=== PATIENT | male | born 1970 | race Two or more races ===

== ENCOUNTER 2016-10-07 18:50 | Emergency (ER) | payer SELFPAY ==
[~2016-10-07] VITALS: Ht 172.7 cm; Wt 79.4 kg
[2016-10-07 18:58] VITALS: BP 135/80
[2016-10-07] MEDS ORDERED: LIDOCAINE HCL/PF 1% 30 ML SDV ONE (19:10)
--- NOTE | 2016-10-07 19:20 | NUR ---
started a saline lock on the right forearm g20, blood drawn and sent to lab.
[2016-10-07 19:25] LABS: BASOPHILS % (AUTO) 0.2 % (0.0-2.0); EOSINOPHILS # (AUTO) 0.2 /CMM (0.0-0.7); HEMATOCRIT 46 % (39-51); HEMOGLOBIN 15.1 g/dL (13.5-17.5); LYMPHOCYTES # (AUTO) 2.4 /CMM (0.8-4.8); LYMPHOCYTES % (AUTO) 24.4 % (20.0-44.0); MEAN CORPUSCULAR HEMOGLOBIN 27 PG (26.0-33.0); MEAN CORPUSCULAR HGB CONC 33 g/dl (31.0-36.0); MEAN CORPUSCULAR VOLUME 82 fL (80-96); MONOCYTES # (AUTO) 0.7 /CMM (0.1-1.30); MONOCYTES % (AUTO) 6.8 % (2.0-12.0); NEUTROPHILS # (AUTO) 6.6 /CMM (1.8-8.9); NEUTROPHILS % (AUTO) 66.6 % (43.0-81.0); PLATELET COUNT (AUTO) 236 /CMM (150-450); RDW COEFFICIENT OF VARIATION 12.3 (11.5-15.0); RED BLOOD CELL COUNT(AUTO) 5.56 MIL/uL (4.5-6.0); WHITE BLOOD COUNT (AUTO) 9.9 K/uL (4.3-11.0)
[2016-10-07] MEDS ORDERED: INSULIN REGULAR, HUMAN 100 UNIT/ML 10 ML VIAL ONE (19:25)
[2016-10-07] MEDS ORDERED: IV SET PRIMARY 1 EA INFUS.SET MC ONE (19:25)
[2016-10-07] MEDS ORDERED: IV NS 0.9% 1,000 ML ONE (19:25)
[2016-10-07] MEDS ORDERED: INSULIN REGULAR, HUMAN 100 UNIT/ML 10 ML VIAL SQ ONE (19:30)
[2016-10-07] MEDS ORDERED: LIDOCAINE HCL/PF 1% 30 ML VIAL TP ONE (19:30)
[2016-10-07] MEDS ORDERED: IV NS 0.9% 1,000 ML BAG IV ONE (19:30)
[2016-10-07 19:37] LABS: CALCIUM, SERUM 9.4 mg/dL (8.5-10.1); CREATININE 1.1 mg/dL (0.6-1.3); POTASSIUM 4.2 mmol/L (3.5-5.1)
--- NOTE | 2016-10-07 19:37 | NUR ---
JEREMY Hamm at bedside for I and D.
[2016-10-07 19:43] LABS: APPEARANCE,URINE Clear (CLEAR); BILIRUBIN,URINE Negative (NEGATIVE); BLOOD, URINE Trace-lysed Ery/uL (NEGATIVE); COLOR,URINE Yellow (YELLOW); KETONES,URINE Negative (NEGATIVE); LEUKOCYTE ESTERASE ,URINE Negative (NEGATIVE); NITRITE, URINE Negative (NEGATIVE); PH,URINE 6.5 (5.0-8.0); PROTEIN,URINE Negative (NEGATIVE); UGLUCOSE 500 MG/DL mg/dL (NEGATIVE); UROBILINOGEN,URINE 0.2 EU/dL (0.2)
[2016-10-07 19:54] LABS: ADD URINE CULTURE NO; BACTERIA,URINE None seen /HPF (None Seen); SQUAMOUS EPITHELIAL CELL,UR Few /HPF (None Seen); WBC,URINE 0-2 /HPF (0-3)
--- NOTE | 2016-10-07 20:21 | NUR ---
Patient discharged to home in stable condition. Written and verbal after care instructions given. Patient verbalizes understanding of instruction. Patient is ambulatory with steady gait.
== END 2016-10-07 19:43 | disposition home or self-care (01) ==
LOC: ER 18:54
DX: L03.012 Cellulitis of left finger (principal); E11.65 Type 2 diabetes mellitus with hyperglycemia; Z79.4 Long term (current) use of insulin
CPT/HCPCS: 36415; 80048-TC; 81000-TC; 82962-TC; 85025-TC; A4606; A6403; J1815; J3490; J7030; Z7610

== ENCOUNTER 2020-11-08 06:32 | Emergency (ER) | payer MEDICAID ==
[~2020-11-08] VITALS: Ht 167.6 cm; Wt 76.7 kg
[2020-11-08 06:43] VITALS: BP 151/90
[2020-11-08] MEDS ORDERED: CEPH500C2 PO (06:52)
== END 2020-11-08 07:13 | disposition home or self-care (01) ==
LOC: ER 06:32
DX: L03.031 Cellulitis of right toe (principal); L08.9 Local infection of the skin and subcutaneous tissue, unspecified; E11.9 Type 2 diabetes mellitus without complications

== ENCOUNTER 2021-05-25 19:59 | Emergency (ER) | payer MEDICAID ==
[~2021-05-25] VITALS: Ht 172.7 cm; Wt 64.9 kg
[~2021-05-25 19:59] MED LIST: CEPH500C2 PO
[2021-05-25 20:36] VITALS: BP 132/86
== END 2021-05-25 20:57 | disposition home or self-care (01) ==
LOC: ER 20:02
DX: S91.204A Unspecified open wound of right lesser toe(s) with damage to nail, initial encounter (principal); E11.9 Type 2 diabetes mellitus without complications; W22.8XXA Striking against or struck by other objects, initial encounter; Y93.89 Activity, other specified; Y92.89 Other specified places as the place of occurrence of the external cause; Y99.8 Other external cause status